=== PATIENT | female | born 1950 | race Caucasian/White ===

== ENCOUNTER 2018-07-20 13:39 | Inpatient (IN) | payer OTHER ==
[~2018-07-20] VITALS: Ht 162.6 cm; Wt 79.4 kg
[2018-07-20] MEDS ORDERED: VASOTEC5 MG PO (13:56)
[2018-07-30] MEDS ORDERED: PANTOPRAZOLE SO40 MG PO (14:11)
[2018-07-30] MEDS ORDERED: ZANTAC150 MG PO (14:11)
[2018-07-30] MEDS ORDERED: Intestinex CAP PO (14:11)
== END 2018-07-30 18:30 | disposition home or self-care (01) | DRG 445 ==
LOC: ER 13:39 → SEC-K 16:42 → SURG 16:42
PROVIDERS: ADMIT Surgery
PROC: BF37ZZZ Magnetic Resonance Imaging (MRI) of Pancreas (ICD-10-PCS; 2018-07-21)
PROC: 0FJD8ZZ Inspection of Pancreatic Duct, Via Natural or Artificial Opening Endoscopic (ICD-10-PCS; principal; 2018-07-25)
DX: K80.00 Calculus of gallbladder with acute cholecystitis without obstruction (principal); E87.1 Hypo-osmolality and hyponatremia; I10 Essential (primary) hypertension; E86.0 Dehydration